=== PATIENT | female | born 1980 | race Caucasian/White ===

== ENCOUNTER 2024-01-01 06:41 | Emergency (ER) | payer MEDICAID, OTHER ==
[2024-01-01 06:53] VITALS: BP 163/96; O2SAT 98
--- NOTE | 2024-01-01 07:59 | ED Physician Documentation ---
PD HPI HEENT - Stated complaint Stated Complaint: RT EAR PX/POPPING SOUND - Chief complaint Chief Complaint: Heent - History obtained from History obtained from: Patient - Additional information Additional information: The patient comes to the emergency department chief complaint of right ear pain and popping since yesterday afternoon after cleaning her ears with a Q-tip. She wonders if the tip of the Q-tip came off and was retained in her ear. She states her ear was not hurting before cleaning. No drainage. She has some chronic congestion. No diving or flying. No trauma. No other complaints at this time. PD PAST MEDICAL HISTORY - Past Medical History Past Medical History: No - Past Surgical History Past Surgical History: No - Allergies Allergies/Adverse Reactions: Allergies Allergy/AdvReac Type Severity Reaction Status Date / Time No Known Drug Allergies Allergy Verified 01/01/24 06:50 - Social History Does the pt smoke?: No Smoking Status: Never smoker PD ED PE NORMAL - General General: No acute distress, Well developed/nourished, Other (Alert, grossly intact.) - HEENT HEENT: Atraumatic, EOMI, Moist mucous membranes, Other (Right tympanic membrane demonstrates no redness, thickening, or dullness. Normal light reflection. Clear fluid noted posterior to TM with bubbles. TM intact.) Results - Vitals Vitals: Oxygen O2 Source Room air PD Medical Decision Making - ED course Complexity details: considered differential, d/w patient ED course: I discussed with the patient that I do not see a foreign body in her ear and that I think she just has some air and fluid trapped behind the TM, likely due to clogged eustachian tube. We have discussed decongestants which the patient already has at home. She does not want to take a course of steroids at this time. We have discussed follow-up with ENT if the symptoms become chronic. Departure - Departure Disposition: 01 Home, Self Care Clinical Impression: Serous otitis media Qualifiers: Chronicity: acute Laterality: right Recurrence: non-recurrent Qualified Code(s): H65.01 - Acute serous otitis media, right ear Condition: Stable Instructions: ED Otitis Media Serous Adult Comments: You do not have any foreign body in your ear canal. You do not have any signs of infection but do have some clear fluid and bubbles behind your eardrum. Most likely, you have some clogging of your eustachian tube, which has trapped fluid and air behind the eardrum. This can cause pain and popping. Usually, it would clear up on its own. If you have chronic congestion, a decongestant can help. Sometimes an anti-inflammatory, either as an xrcu-ocl-kwaoogg medicine like ibuprofen or a prescribed medication like a steroid, which you have been offered today, can assist as well. Forms: PCP List Discharge Date/Time: 01/01/24 08:25
== END 2024-01-01 08:25 | disposition home or self-care (01) ==
LOC: ED 06:41
DX: H65.01 Acute serous otitis media, right ear (principal)
CPT/HCPCS: 99281; 99283

== ENCOUNTER 2024-01-21 06:42 | Emergency (ER) | payer MEDICAID ==
[2024-01-21 07:06] VITALS: BP 145/102; O2SAT 98
--- NOTE | 2024-01-21 07:28 | ED Physician Documentation ---
History of Present Illness - Stated complaint Stated Complaint: N/V, ACHES, FEVER - Chief complaint Chief Complaint: Heent - History obtained from History obtained from: Patient - Additonal information Additional information: Otherwise healthy undomiciled 43-year-old woman has been sick for 2 days with bodyaches, cough, runny nose, fatigue. She is homeless and lives at a [facility]. She has not had fevers. Multiple sick contacts at the [facility]. PD PAST MEDICAL HISTORY - Past Medical History Past Medical History: No - Past Surgical History Past Surgical History: Yes General: Cholecystectomy - Allergies Allergies/Adverse Reactions: Allergies Allergy/AdvReac Type Severity Reaction Status Date / Time No Known Drug Allergies Allergy Verified 01/21/24 06:48 - Social History Does the pt smoke?: No Smoking Status: Never smoker Does the pt drink ETOH?: No Does the pt have substance abuse?: No - Immunizations Immunizations are current?: Yes - POLST Patient has POLST: No PD ED PE NORMAL - Vitals Vital signs reviewed: Yes - General General: Alert and oriented X 3, No acute distress - HEENT HEENT: PERRL, EOMI, Other (Retracted right TM, mild redness of the tonsillar pillars, no exudates or swelling.) - Neck Neck: Supple, no meningeal sign, No bony TTP - Cardiac Cardiac: RRR, No murmur - Respiratory Respiratory: No respiratory distress, Clear bilaterally - Abdomen Abdomen: Non tender - Neuro Neuro: Alert and oriented X 3, tools developer 2-12 intact Eye Opening: Spontaneous Motor: Obeys Commands Verbal: Oriented GCS Score: 15 - Psych Psych: Normal mood, Normal affect Results - Vitals Vitals: Vital Signs - 24 hr 01/21/24 06:48 Temperature 36.9 C Heart Rate 104 H Respiratory 16 Rate Blood Pressure 145/102 H O2 Saturation 98 Oxygen O2 Source Room air - Labs Labs: Laboratory Tests 01/21/24 07:31 Nasal Adenovirus (PCR) NOT DETECTED Nasal B. parapertussis DNA (PCR) NOT DETECTED Nasal Coronavir 229E PCR NOT DETECTED Nasal Coronavir HKU1 PCR NOT DETECTED Nasal Coronavir NL63 PCR NOT DETECTED Nasal Coronavir OC43 PCR NOT DETECTED Nasal Enterovir/Rhinovir PCR DETECTED A Nasal Influenza B PCR NOT DETECTED Nasal Influenza A PCR NOT DETECTED Nasal Parainfluen 1 PCR NOT DETECTED Nasal Parainfluen 2 PCR NOT DETECTED Nasal Parainfluen 3 PCR NOT DETECTED Nasal Parainfluen 4 PCR NOT DETECTED Nasal RSV (PCR) NOT DETECTED Nasal B.pertussis DNA PCR NOT DETECTED Nasal C.pneumoniae (PCR) NOT DETECTED Thompson Human Metapneumo PCR NOT DETECTED Nasal M.pneumoniae (PCR) NOT DETECTED Nasal SARS-CoV-2 (PCR) NOT DETECTED - Rads (name of study) 2v CXR-NAD Relevant Findings:: Final report received, EMP independent interpretation of test PD Medical Decision Making - ED course ED course: 43-year-old woman with nonspecific viral URI/syndrome. Clear chest x-ray and nontoxic. Discharged pending viral PCR and I left voicemail to call back regarding rhinovirus positive at 9:02 AM. Departure - Departure Disposition: 01 Home, Self Care Clinical Impression: Viral syndrome Condition: Good Record reviewed to determine appropriate education?: Yes Instructions: ED Viral Syndrome Comments: Your respiratory viral panel pending. We will call you with any positive results. That said the pattern of your illness does sound quite viral, Tylenol and/or ibuprofen as needed for aches and pains and axig-iza-nermuak Sudafed and cough medicine. Return for new or worsening symptoms. Drink plenty of fluids. Forms: PCP List, Activity restrictions Discharge Date/Time: 01/21/24 08:17
[2024-01-21] MEDS: ONDANSETRON ODT 4 MG TABLET TL STA (07:34)
[2024-01-21] MEDS: guaiFENesin/CODEINE 5 ML UDC PO STA (07:34)
--- NOTE | 2024-01-21 08:09 | XRAY Report ---
PROCEDURE: Chest 2V INDICATIONS: cough TECHNIQUE: 2 views of the chest were acquired. COMPARISON: None. FINDINGS: Surgical changes and devices: None. Lungs and pleura: No pleural effusions or pneumothorax. Lungs are clear. Mediastinum: Mediastinal contours appear normal. Heart size is normal. Bones and chest wall: No suspicious bony lesions. Overlying soft tissues appear unremarkable. IMPRESSION: No acute cardiopulmonary process. Reviewed by: Laureano Enriquez MD on 01/21/2024 8:07 AM PDT Approved by: Laureano Enriquez MD on 01/21/2024 8:07 AM PDT Station ID: [id number]
[2024-01-21 08:36] LABS: B. PARAPERTUSSIS- RESP PCR PAN NOT DETECTED; B. PERTUSSIS- RESP PCR PANEL NOT DETECTED; C. PNEUMONIAE- RESP PCR PANEL NOT DETECTED; CORONAVIRUS 229E-RESP PCR NOT DETECTED; CORONAVIRUS HKU1-RESP PCR NOT DETECTED; CORONAVIRUS NL63-RESP PCR NOT DETECTED; CORONAVIRUS OC43-RESP PCR NOT DETECTED; HUMAN METAPNEUMOVIRUS NOT DETECTED; INFLUENZA A- RESP PCR PANEL NOT DETECTED; INFLUENZA B - RESP PCR PANEL NOT DETECTED; M. PNEUMONIAE- RESP PCR PANEL NOT DETECTED; PARAINFLUENZA VIRUS 1 NOT DETECTED; PARAINFLUENZA VIRUS 2 NOT DETECTED; PARAINFLUENZA VIRUS 3 NOT DETECTED; PARAINFLUENZA VIRUS 4 NOT DETECTED; RHINOVIRUS/ENTEROVIRUS DETECTED; RSV- RESP PCR PANEL NOT DETECTED; SARS-CoV-2 -RESP PCR PANEL NOT DETECTED
== END 2024-01-21 08:17 | disposition home or self-care (01) ==
LOC: ED 06:42
DX: B34.9 Viral infection, unspecified (principal); Z59.01 Sheltered homelessness
CPT/HCPCS: 71046; 87633; 99283; 99284; A9270; Q0162